=== PATIENT | female | born 1995 | race Caucasian/White ===

== ENCOUNTER 2018-11-22 08:06 | Inpatient (IN) | payer OTHER ==
[2018-11-22] MEDS ORDERED: PROMETHAZINE 25 MG/ML VIAL IV PRN (08:52)
[2018-11-22] MEDS ORDERED: Ringers Lactate 1,000 ML IV PRN (08:52)
[2018-11-22] MEDS ORDERED: BUTORPHANOL 1 MG/ML INJ IV PRN (08:52)
[2018-11-22] MEDS ORDERED: CARBOPROST TROME 250 MCG/ML IM PRN ×2 (08:52→15:31)
[2018-11-22] MEDS ORDERED: METHYLERGONOVINE 0.2MG/ML AMP IM PRN ×2 (08:52→15:31)
[2018-11-22] MEDS ORDERED: OXYTOCIN/LR 20 UNIT/1,000 ML BAG IV SCH ×2 (09:00→16:00)
[2018-11-22] MEDS ORDERED: Ringers Lactate 1,000 ML IV SCH (09:00)
[2018-11-22 09:14] LABS: RPR Titer ND
[2018-11-22 09:17] LABS: Absolute Lymphocytes (CBC) 1.7 K/uL (0.7-4.9); Absolute Monocytes 0.7 K/uL (0.1-1.3); Eosinophils % 0.4 % (0-4.4); Hematocrit 36.5 % (36.0-45.0); Lymphocytes % 11.6 % (15.3-44.8); MPV 8.2 fL (7.6-11.3); Monocytes % 4.9 % (3.3-12.3); RBC Red Blood Cell Count 4.64 M/uL (3.86-4.86)
--- NOTE | 2018-11-22 09:34 | P.HP ---
Date of Service: 11/22/18 SPROM, cx 4 cm, vtx, minus 2 station. Will augment with pitocin, type and screen for possible cpd. Will watch for progress
[2018-11-22] MEDS ORDERED: ROPIVACAINE HCL 100 ML IV PRN (10:44)
[2018-11-22] MEDS ORDERED: FENTANYL CITR 100 MCG/2 ML IV ONE (10:46)
[2018-11-22] MEDS ORDERED: ROPIVACAINE HCL 0.2% 20ML AMP IV ONE (10:47)
[2018-11-22 10:58] VITALS: BMI 36.1
[2018-11-22 12:41] LABS: Urine Appearance CLEAR; Urine Bilirubin NEGATIVE (NEG); Urine Blood TRACE (NEG); Urine Color YELLOW; Urine Glucose NEGATIVE (NEG); Urine Protein NEGATIVE (NEG); Urine Urobilinogen 0.2 mg/dL (0.2-1.0)
[2018-11-22 12:51] LABS: Urine Bacteria NONE SEEN /HPF (<20); Urine Culture Reflex Order NOT NEEDED; Urine RBC 20-50 /HPF (NONE SEEN)
[2018-11-22] MEDS ORDERED: DIPHENHYDRAMINE 50 MG/ML VIAL ONE (13:38)
[2018-11-22] MEDS ORDERED: FENTANYL CITR 250 MCG/5 ML ONE (14:00)
[2018-11-22] MEDS ORDERED: DIPHENHYDRAMINE 50 MG/ML VIAL IV ONE (14:00)
--- NOTE | 2018-11-22 14:36 | PREOPHP ---
Date of Admission: 11/22/2018 History Of Present Illness: The patient is a 23-year-old female, 1, para 0, at approximately 38 weeks gestation. She has been seen by me during the later portion of after transfer of care. Her is in the who is being deployed. She returned to [place] to be with her family. She noticed leakage of fluid earlier this morning and contractions since myriam t time, presents to Labor and Delivery for evaluation where rupture of membranes is confirmed. Past Medical History: Please see record. Family History: Please see record. Review of Systems: She has noticed some recent cough minimally productive, but with no fever. She has been little bit n auseated this morning with a contractions, but nothing more. She denies any breast lumps. Baby has been active. She denies any vaginal bleeding. UTI symptoms are recurring bouts of diarrhea or const ipation. Physical Examination: General: Reveals a pleasant female in no apparent distress. Neck: Supple without adenopathy or thyromegaly. Lungs: Clear. Cardiac: Regular rate and rhythm without murmurs. Breasts: Not examined. Abdomen: Estimated weight of 7+ pounds. Pelvic: Cervix 4 cm dilated, 85% effaced, soft, midposition, vertex and -2 station. Extremities: Trace lower extremity edema. Impression: A 38+ week , spontaneous rupture of membranes, not in active labor. Plan: The patient will be augmented with Pitocin. We will do type and screen because of some concer n for CPD. LINN/HANNAH Voice ID: [id number]
[2018-11-22] MEDS ORDERED: METHYLERGONOVINE 0.2MG/ML AMP IM ONE (15:10)
[2018-11-22] MEDS ORDERED: LIDOCAINE 1% MPF 30 ML VIAL ONE (15:10)
[2018-11-22] MEDS ORDERED: Oxycodone HCl/Acetaminophen 1 TAB TAB PO PRN (15:31)
[2018-11-22] MEDS ORDERED: METHYLERGONOVINE 0.2 MG TAB PO PRN (15:31)
[2018-11-22] MEDS ORDERED: ONDANSETRON 4 MG (ODT) TAB PO PRN (15:31)
[2018-11-22] MEDS ORDERED: IBUPROFEN 200 MG TAB PO PRN (15:31)
--- NOTE | 2018-11-22 15:36 | P.BOP ---
Preoperative diagnosis: 38+wk Postoperative diagnosis: SCVD Primary procedure: above, Right mediolateral episiotomy Secondary procedure: repair 3rd degree extension of episiotomy Estimated blood loss: Less than 400ml Anesthesia: epidural Complications: None Transferred to: Other ([id number]) Condition: Good
[2018-11-22] MEDS: Oxycodone HCl/Acetaminophen 1 TAB TAB PO PRN (19:10)
[2018-11-22] MEDS ORDERED: DOCUSATE CALCIUM 240 MG CAP PO SCH (21:00)
[2018-11-22 21:01] LABS: RPR (Rapid Plasma Reagin) NON-REACT (NON-REACT)
[2018-11-23] MEDS: Oxycodone HCl/Acetaminophen 1 TAB TAB PO PRN ×2 (02:58→16:43)
[2018-11-23] MEDS ORDERED: Ringers Lactate 1,000 ML IV ONE (07:10)
--- NOTE | 2018-11-23 15:11 | DS ---
Final Hospital Discharge Diagnosis: Term , delivered. Complications: Third-degree extension of episiotomy. Procedures: Pitocin augmentation of labor, right midline episiotomy, spontaneous controlled vaginal delivery of viable female , repair of third-degree extension of episiotomy. Hospital Course: The patient is a 23-year-old female, 1, para 0, at term. Admitted in early labor with spontaneous rupture of membranes. She delivered a 7-pound 5-ounce female infant , 9 and 9. Suffered with third-degree laceration at the time of delivery. She was dismissed o n the first day, ambulatory, on a select diet with routine post vaginal delivery activity restrictions to be seen back in my office in 1 week. She was to continue taking her iron an d vitamins, to continue a stool softener for a 6-week period of time and was dismissed with the usual post vaginal delivery activity restrictions. Lab work included an admission hemoglobin and hematocr it of 12.2 and 36.5. Dismissal of 31.3. She is Rh positive blood type. Antibody screen negative. LINN/HANNAH Voice ID: [id number] Report ID: [id number]
[2018-11-23 17:59] VITALS: BP 137/78; TEMP 97.3
--- NOTE | 2018-11-25 09:46 | OP ---
Surgeon: Tae Tripp MD Ms. Santa is a 23-year-old female, 1, para 0, admitted with spontaneous rupture of me mbranes, noted to be 3 cm dilated, not in active labor. After Pitocin augmentation of labor and plac ement of epidural catheter, she had a first stage of labor of approximately 9 hours, second stage of labor 40 minutes. She delivered by a spontaneous controlled vaginal delivery, a 7-pound 5-ounce fema le , 9 and 9, after delayed cord clamping. The cord was clamped, cut, and the libby shannen on mother's upper abdomen. Cord blood was obtained. Placenta was spontaneously expelled and angela eared to be intact. Intrauterine examination revealed no retained placental fragments. A right midl ine episiotomy had been performed. This extended to a third-degree laceration with delivery of the f etal vertex. This was repaired in the usual fashion with 3-0 Vicryl sutures with local infiltration of anesthesia. She had epidural catheter placed during her labor course with good benefit, although toward the later stages of labor its benefits appeared to wear off. Estimated total blood loss was l ess than 400 cc. LINN/HANNAH Voice ID: [id number] Report ID: [id number]
[2018-11-28 04:21] LABS: HBsAG Nonreactive (Nonreactive)
== END 2018-11-23 18:45 | disposition home or self-care (01) | DRG 768 ==
LOC: L&D 08:06 → 2ND-WC 08:47
PROVIDERS: ADMIT Specialist; ATTEND Specialist
PROC: 10E0XZZ Delivery of Products of Conception, External Approach (ICD-10-PCS; principal; 2018-11-22)
PROC: 0DQR0ZZ Repair Anal Sphincter, Open Approach (ICD-10-PCS; 2018-11-22)
PROC: 0W8NXZZ Division of Female Perineum, External Approach (ICD-10-PCS; 2018-11-22)
DX: O70.20 Third degree perineal laceration during delivery, unspecified (principal); Z37.0 Single live birth; Z3A.38 38 weeks gestation of pregnancy
CPT/HCPCS: 36415; 81001; 85014; 85025; 86592; 86850; 86900; 86901; 87340; J0595; J2210; J2590; J2795; J3010